=== PATIENT | female | born 1975 | race Caucasian/White ===

== ENCOUNTER 2021-02-23 09:30 | Emergency (ER) | payer SELFPAY ==
--- NOTE | 2021-02-23 11:17 | RAD REPORT ---
EXAM DESCRIPTION: Gabby Single View02/23/2021 10:39 am CLINICAL HISTORY: Cough COMPARISON: none FINDINGS: Lungs are mildly hyperaerated. The lungs appear clear of acute infiltrate. The heart is normal size IMPRESSION: No acute abnormalities displayed
--- NOTE | 2021-02-23 11:53 | ER ---
Nurse's Notes [facility] Name: Suma Chandler Age: 45 yrs Sex: Female : 1975 Arrival Date: 02/23/2021 Time: 09:34 Bed 8 Private MD: Diagnosis: Acute Gastroenteritis Presentation: 02/23 09:53 Chief complaint: Patient states: sneezing, sore throat, runny nose, hoarseness, ss headache and diarrhea that began 2 days ago. Coronavirus screen: Client denies travel out of the [place] in the last 14 days. Ebola Screen: Patient denies exposure to infectious person. Patient denies travel to an Ebola-affected area in the 21 days before illness onset. Initial Sepsis Screen: Does the patient meet any 2 criteria? No. Patient's initial sepsis screen is negative. Does the patient have a suspected source of infection? No. Patient's initial sepsis screen is negative. Risk Assessment: Do you want to hurt yourself or someone else? Patient reports no desire to harm self or others. Onset of symptoms was February 21, 2021. 09:53 Method Of Arrival: Ambulatory ss 09:53 Acuity: KULWANT 4 ss Triage Assessment: 12:03 General: Appears in no apparent distress. Behavior is calm, cooperative. 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 - Social history:: Smoking status: Patient reports the use of cigarette tobacco products, smokes one-half pack cigarettes per day. Screenin:01 Abuse screen: Denies threats or abuse. Nutritional screening: No deficits noted. ll1 Tuberculosis screening: No symptoms or risk factors identified. Fall Risk None identified. Gait- Weak (10 pts.). Mental Status- Total Carter Fall Scale indicates No Risk (0-24 pts). Assessment: 12:01 Pain: Complains of pain in throat/body aches Quality of pain is described as aching. ll1 Neuro: No deficits noted. Cardiovascular: No deficits noted. Respiratory: Airway is patent Trachea midline Respiratory effort is even, unlabored, Respiratory pattern is regular, symmetrical, Breath sounds are clear bilaterally. GI: Abdomen is flat, Bowel sounds present X 4 quads. Reports cramping, diarrhea, nausea. EENT: Throat is clear Reports pain when swallowing. Musculoskeletal: Circulation, motion, and sensation intact. Capillary refill < 3 seconds, Reports pain in body. Vital Signs: 09:53 BP 171 / 117; Pulse 83; Resp 15; Temp 98.0(TE); Pulse Ox 100% on R/A; Weight 58.97 kg; ss Height 5 ft. 3 in. (160.02 cm); Pain 2/10; 11:46 BP 169 / 119; Pulse 86; Resp 16; ll1 09:53 Body Mass Index 23.03 (58.97 kg, 160.02 cm) ED Course: 09:34 Patient arrived in ED. mr 09:55 Triage completed. 09:55 Arm band placed on right wrist. 10:18 Shiva Dupont PA is PHCP. [facility] 10:18 Wade Ahmadi MD is Attending Physician. 8 10:19 Jacqueline Garcia, DI is Primary Nurse. ll1 10:39 CXR XRAY In Process Unspecified. EDMS 12:03 Patient has correct armband on for positive identification. Bed in low position. Call ll1 light in reach. Side rails up X 1. Cardiac monitoring not applicable on this patient. 12:03 No provider procedures requiring assistance completed. Patient did not have IV access ll1 during this emergency room visit. Administered Medications: No medications were administered Outcome: 11:52 Discharge ordered by . Lexie 12:03 Discharged to home ambulatory. ll1 12:03 Condition: stable 12:03 Discharge instructions given to patient, Instructed on discharge instructions, follow up and referral plans. medication usage, Demonstrated understanding of instructions, follow-up care, medications, Prescriptions given X 2. 12:04 Patient left the ED. ll1 Signatures: Dispatcher [employer] EDKY IlyaRonda Shelby, RN RN Shiva Dupont PA PA Jacqueline Bazzi, DI RN ll1 Corrections: (The following items were deleted from the chart) 11:50 10:41 CORONAVIRUS+LAB.BRZ drawn and sent. 1 EDKY
--- NOTE | 2021-02-23 11:53 | EDPHYS ---
Physician Documentation [facility] Name: Suma Chandler Age: 45 yrs Sex: Female : 1975 Arrival Date: 02/23/2021 Time: 09:34 Bed 8 Private MD: NUNO Physician Wade Ahmadi HPI: 02/23 10:55 This 45 yrs old Female presents to ER via Ambulatory with complaints of Sore jr8 Throat, Nausea. 10:55 Patient reports feeling poorly 3 days ago with sneezing, cough, vomiting, and diarrhea. jr8 Today she reports fatigue, sore throat, and generalized body aches. She denies difficulty swallowing. . 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 - Social history:: Smoking status: Patient reports the use of cigarette tobacco products, smokes one-half pack cigarettes per day. ROS: 10:56 Eyes: Negative for injury, pain, redness, and discharge, Neck: Negative for injury, jr8 pain, and swelling, Cardiovascular: Negative for chest pain, palpitations, and edema, : Negative for injury, bleeding, discharge, and swelling, MS/Extremity: Negative for injury and deformity, Neuro: Negative for headache, weakness, numbness, tingling, and seizure. 10:56 Constitutional: Positive for body aches. 10:56 ENT: Positive for sinus congestion, sore throat. 10:56 Respiratory: Positive for cough, shortness of breath, Burning in chest. 10:56 Abdomen/GI: Positive for vomiting, diarrhea. 10:56 All other systems are negative. Exam: 10:57 Head/Face: Normocephalic, atraumatic. Eyes: Pupils equal round and reactive to light, jr8 extra-ocular motions intact. Lids and lashes normal. Conjunctiva and sclera are non-icteric and not injected. Cornea within normal limits. Periorbital areas with no swelling, redness, or edema. ENT: Nares patent. No nasal discharge, no septal abnormalities noted. Tympanic membranes are normal and external auditory canals are clear. Oropharynx with no redness, swelling, or masses, exudates, or evidence of obstruction, uvula midline. Mucous membranes moist. Chest/axilla: Normal chest wall appearance and motion. Nontender with no deformity. No lesions are appreciated. Cardiovascular: Regular rate and rhythm with a normal S1 and S2. No gallops, murmurs, or rubs. Normal PMI, no JVD. No pulse deficits. Abdomen/GI: Soft, non-tender, with normal bowel sounds. No distension or tympany. No guarding or rebound. No evidence of tenderness throughout. Neuro: Awake and alert, GCS 15, oriented to person, place, time, and situation. Cranial nerves II-XII grossly intact. Motor strength 5/5 in all extremities. Sensory grossly intact. Cerebellar exam normal. Normal gait. 10:57 Respiratory: the patient does not display signs of respiratory distress, Respirations: normal, Breath sounds: are clear throughout, Expiratory wheeze in L middle lobe, Respiratory rate: 20 Vital Signs: 09:53 BP 171 / 117; Pulse 83; Resp 15; Temp 98.0(TE); Pulse Ox 100% on R/A; Weight 58.97 kg; ss Height 5 ft. 3 in. (160.02 cm); Pain 2/10; 11:46 BP 169 / 119; Pulse 86; Resp 16; ll1 09:53 Body Mass Index 23.03 (58.97 kg, 160.02 cm) ss MDM: 10:18 Patient medically screened. jr8 11:51 Data reviewed: vital signs, nurses notes, lab test result(s), radiologic studies, plain jr8 films, and as a result, I will discharge patient. Data interpreted: Pulse oximetry: on room air is 100 %. Interpretation: normal. Counseling: I had a detailed discussion with the patient and/or guardian regarding: the historical points, exam findings, and any diagnostic results supporting the discharge/admit diagnosis, lab results, radiology results, the need for outpatient follow up, a family practitioner, to return to the emergency department if symptoms worsen or persist or if there are any questions or concerns that arise at home. 11:57 ED course: Patient educated on when to and if to return to ER: inability to breath, jr8 blood in stool or vomit, weakness and tachycardia. Educated on medications DCd home with. Will call later for COVID results. . 02/23 10:27 Order name: MUNIRA SALEEM; Complete Time: 11:38 jr8 Administered Medications: No medications were administered Disposition: 02/23/21 11:52 Discharged to Home. Impression: Acute Gastroenteritis. - Condition is Stable. - Discharge Instructions: Viral Gastroenteritis, Adult. - Prescriptions for Bentyl 20 mg Oral Tablet - take 1 tablet by ORAL route every 6 hours As needed; 20 tablet. Zofran 4 mg Oral Tablet - take 1 tablet by ORAL route every 12 hours As needed; 20 tablet. - Medication Reconciliation Form, Thank You Letter, Antibiotic Education, Prescription Opioid Use, Work release form form. - Follow up: Private Physician; When: 2 - 3 days; Reason: Recheck today's complaints, Continuance of care, Re-evaluation by your physician. - Problem is new. - Symptoms have improved. Addendum: 02/25/2021 08:07 Co-signature as Attending Physician, Wade Ahmadi MD I agree with the assessment and c hummel plan of care. Signatures: Dispatcher [employer] [facility] Wade Ahmadi MD MD cha Smirch, Shelby, RN RN ss Shiva Dupont PA PA jr8 Jacqueline Garcia RN RN ll1 Corrections: (The following items were deleted from the chart) 02/23 11:50 10:27 CORONAVIRUS+MR.LAB.BRZ ordered. [facility] 12:04 11:52 02/23/2021 11:52 Discharged to Home. Impression: Acute Gastroenteritis. Condition ll1 is Stable. Forms are Medication Reconciliation Form, Thank You Letter, Antibiotic Education, Prescription Opioid Use. Follow up: Private Physician; When: 2 - 3 days; Reason: Recheck today's complaints, Continuance of care, Re-evaluation by your physician. Problem is new. Symptoms have improved. jr8
[2021-02-23 12:16] VITALS: TEMP 98; O2SAT 100
[2021-02-23 12:17] VITALS: BP 169/119
== END 2021-02-23 12:04 | disposition home or self-care (01) ==
LOC: ER 09:30
DX: K52.9 Noninfective gastroenteritis and colitis, unspecified (principal); Z20.822 Contact with and (suspected) exposure to COVID-19; F17.210 Nicotine dependence, cigarettes, uncomplicated
CPT/HCPCS: 71045; 99283; U0003